=== PATIENT | male | born 1945 | race Caucasian/White ===

== ENCOUNTER 2022-10-05 16:41 | Observation (INO) ==
[2022-10-05 18:41] LABS: ABS Basophils 0.1 10^3/uL (0.0-0.1); ABS Lymphocytes 0.8 10^3/uL (1.0-4.8); ABS Monocytes 0.6 10^3/uL (0.0-1.1); ABS Neutrophils 2.5 10^3/uL (1.5-7.6); ABS Nucleated RBC 0.01 10^3/ul; Eosinophil % 0.7 %; Hematocrit 41.1 % (38-53); Hemoglobin 13.9 g/dL (13.2-16.3); Lymphocyte % 20.4 %; Mean Corpuscular Hemoglobin 31.5 pg (27-33); Mean Corpuscular Hgb Conc 33.7 g/dL (31-36); Mean Corpuscular Volume 93.2 fL (80-97); Mean Platelet Volume 8.6 fL (7.5-11.2); Nucleated Red Blood Cells % 0.2 /100 WBC (0.0-0.4); Platelet Count 143 10^3/uL (150-450); Red Blood Count 4.41 10^6/uL (4.06-5.63); Red Cell Distribution Width 13.8 % (12-17)
[2022-10-05 18:50] LABS: Activated Partial Thrombo Time 32.7 seconds (26.0-38.0); INR 1.25 (0.88-1.18)
[2022-10-05 18:58] LABS: Albumin/Globulin Ratio 1.5 (1-3); C Reactive Protein 35.2 mg/L (<8.01); Calcium 9.2 mg/dL (8.6-10.3); Creatinine, Serum 1.09 mg/dL (0.67-1.17); Globulin 2.7 g/dL (2-4); Potassium 3.9 mmol/L (3.5-5.0); Total Bilirubin 0.8 mg/dL (0.2-1.0); Total Protein 6.7 g/dL (6.4-8.9); eGFR CKD-EPI 70.3 (>60)
[2022-10-05 19:16] LABS: Urine Appearance Clear; Urine Bilirubin Negative (Negative); Urine Blood 1+ (Negative); Urine Color Yellow; Urine Glucose Negative (Negative); Urine Ketones 1+ (Negative); Urine Nitrite Negative (Negative); Urine Protein 1+(30 mg/dL) (Negative); Urine Specific Gravity 1.017 (1.002-1.030); Urine Urobilinogen Negative (Negative)
[2022-10-05 19:22] LABS: Urine Bacteria Absent (Absent); Urine Red Blood Cell 1+(3-5/hpf) (Absent); Urine White Blood Cell Trace(0-5/hpf) (Absent)
[2022-10-05 20:10] LABS: High Sensitivity Troponin 1 Hr 12 pg/mL (<20)
[2022-10-05 20:20] LABS: Erythrocyte Sed Rate 8 mm/Hr (0-19)
[2022-10-05] MEDS ORDERED: Dextrose 50% Syringe 50 ml 25 GM/50 ML SYRINGE IV PUSH PRN (21:53)
[2022-10-05] MEDS ORDERED: Azithromycin 500 mg/250 ml NS 500 MG/250 ML BAG IVPB SCH (22:00)
[2022-10-05] MEDS ORDERED: Remdesivir 100 mg Vial 200 MG in NS 0.9% 250 ml 210 ML IV ONE (22:00)
[2022-10-05] MEDS: Enoxaparin 40 MG/0.4 ML SYR SUBCUT SCH (22:51)
[2022-10-06 06:01] LABS: ABS Lymphocytes 0.8 10^3/uL (1.0-4.8); ABS Monocytes 0.2 10^3/uL (0.0-1.1); ABS Nucleated RBC 0.01 10^3/ul; Hematocrit 40.3 % (38-53); Hemoglobin 13.9 g/dL (13.2-16.3); Lymphocyte % 20.8 %; Mean Corpuscular Hemoglobin 32.1 pg (27-33); Mean Corpuscular Hgb Conc 34.6 g/dL (31-36); Mean Corpuscular Volume 92.6 fL (80-97); Mean Platelet Volume 8.5 fL (7.5-11.2); Nucleated Red Blood Cells % 0.2 /100 WBC (0.0-0.4); Platelet Count 138 10^3/uL (150-450); Red Blood Count 4.35 10^6/uL (4.06-5.63); Red Cell Distribution Width 14.1 % (12-17); White Blood Count 4.1 10^3/uL (3.6-10.2)
[2022-10-06 06:05] LABS: INR 1.33 (0.88-1.18)
[2022-10-06 06:14] LABS: Albumin 3.6 g/dL (3.2-5.2); Albumin/Globulin Ratio 1.3 (1-3); Calcium 8.6 mg/dL (8.6-10.3); Creatinine, Serum 1.11 mg/dL (0.67-1.17); Globulin 2.8 g/dL (2-4); Potassium 4.2 mmol/L (3.5-5.0); Total Bilirubin 0.8 mg/dL (0.2-1.0); Total Protein 6.4 g/dL (6.4-8.9); eGFR CKD-EPI 68.8 (>60)
[2022-10-06] MEDS ORDERED: INSULIN ASPART FOR INSULIN PUMP SUBCUT SCH (18:00)
[2022-10-06] MEDS ORDERED: Remdesivir 100 mg Vial 100 MG in NS 0.9% 250 ml 230 ML IV SCH (21:00)
[2022-10-06] MEDS: Enoxaparin 40 MG/0.4 ML SYR SUBCUT SCH (21:15)
[2022-10-07 06:13] LABS: ABS Lymphocytes 1.2 10^3/uL (1.0-4.8); ABS Monocytes 0.7 10^3/uL (0.0-1.1); ABS Neutrophils 4.4 10^3/uL (1.5-7.6); ABS Nucleated RBC 0.01 10^3/ul; Hematocrit 37.8 % (38-53); Hemoglobin 13.2 g/dL (13.2-16.3); Lymphocyte % 18.9 %; Mean Corpuscular Hemoglobin 31.8 pg (27-33); Mean Corpuscular Hgb Conc 34.9 g/dL (31-36); Mean Corpuscular Volume 91.2 fL (80-97); Mean Platelet Volume 8.9 fL (7.5-11.2); Nucleated Red Blood Cells % 0.1 /100 WBC (0.0-0.4); Platelet Count 149 10^3/uL (150-450); Red Blood Count 4.14 10^6/uL (4.06-5.63); Red Cell Distribution Width 14.1 % (12-17); White Blood Count 6.3 10^3/uL (3.6-10.2)
[2022-10-07 06:16] LABS: INR 1.33 (0.88-1.18)
[2022-10-07 06:27] LABS: Albumin 3.4 g/dL (3.2-5.2); Albumin/Globulin Ratio 1.4 (1-3); Calcium 8.2 mg/dL (8.6-10.3); Creatinine, Serum 1.11 mg/dL (0.67-1.17); Globulin 2.5 g/dL (2-4); Total Bilirubin 0.6 mg/dL (0.2-1.0); Total Protein 5.9 g/dL (6.4-8.9); eGFR CKD-EPI 68.8 (>60)
[2022-10-07] MEDS ORDERED: Lactated Ringers 1000 ml BAG 1,000 ML IV SCH (10:00)
[2022-10-07] MEDS: Enoxaparin 40 MG/0.4 ML SYR SUBCUT SCH (20:26)
[2022-10-08 07:06] LABS: Calcium 8.1 mg/dL (8.6-10.3); Creatinine, Serum 1.07 mg/dL (0.67-1.17); Magnesium 1.7 mg/dL (1.9-2.7); Phosphorus 3.6 mg/dL (2.5-5.0); Potassium 4.2 mmol/L (3.5-5.0); eGFR CKD-EPI 71.9 (>60)
[2022-10-08 07:09] LABS: ABS Lymphocytes 1.7 10^3/uL (1.0-4.8); ABS Monocytes 0.5 10^3/uL (0.0-1.1); ABS Neutrophils 2.6 10^3/uL (1.5-7.6); Eosinophil % 0.5 %; Hematocrit 36.6 % (38-53); Hemoglobin 12.7 g/dL (13.2-16.3); Lymphocyte % 35.2 %; Mean Corpuscular Hemoglobin 31.8 pg (27-33); Mean Corpuscular Hgb Conc 34.7 g/dL (31-36); Mean Corpuscular Volume 91.7 fL (80-97); Mean Platelet Volume 8.9 fL (7.5-11.2); Nucleated Red Blood Cells % 0.1 /100 WBC (0.0-0.4); Platelet Count 142 10^3/uL (150-450); Red Blood Count 3.99 10^6/uL (4.06-5.63); Red Cell Distribution Width 13.7 % (12-17); White Blood Count 4.8 10^3/uL (3.6-10.2)
[2022-10-08] MEDS ORDERED: Magnesium Sulfate IV 3 GM in NS 0.9% 100 ml BAG 100 ML IVPB ONE (07:38)
[2022-10-08 14:07] VITALS: BP 106/56
== END 2022-10-08 17:18 | disposition home or self-care (01) | DRG 179 ==
LOC: ED 16:41 → SUATTDRO 20:35 → INTOOBSV 20:35 → EDHOLD 20:35 → MED 21:32
PROVIDERS: ADMIT Internal Medicine; ATTEND Internal Medicine